=== PATIENT | male | born 1995 | race Caucasian/White ===

== ENCOUNTER 2016-06-21 19:39 | Emergency (ER) ==
[2016-06-21 22:26] LABS: MANUAL DIFF NEEDED? NO
[2016-06-21 22:34] LABS: BASO% 0.3 % (0.0-0.8); EOS# 0.19 X1000 (0.0-0.7); EOS% 2.6 % (0.0-10.0); HEMATOCRIT 39.3 % (42.0-52.0); HEMOGLOBIN 13.6 g/dL (14.0-18.0); IMM GRAN# 0.01 X1000 (0.0-0.04); IMM GRAN% 0.1 % (0.0-0.5); LYMPH# 2.15 X1000 (1.2-3.4); LYMPH% 29.9 % (20.5-51.1); MCH 29.2 PG (27-31); MCHC 34.6 g/dL (33-37); MCV 84.3 FL (81-99); MONO# 0.51 X1000 (0.11-0.59); MONO% 7.1 % (1.7-9.3); MPV 11.1 FL (7.4-10.4); PLT 221 X1000 (130-400); RBC 4.66 XMIL (4.7-6.1)
[2016-06-21 22:59] LABS: AGAP 10; ALBUMIN 4.3 g/dL (3.5-5.0); ALKALINE PHOSPHATASE 80 U/L (32-122); AMYLASE 34 U/L (20-200); BUN 9 mg/dL (8-22); CALCIUM 9.4 mg/dL (8.8-10.2); CHLORIDE 102 mmol/L (98-107); COSMO 271; GOT 22 U/L (10-34); GPT 24 U/L (10-44); LIPASE 29 U/L (13-60); POTASSIUM 3.7 mmol/L (3.5-5.1); SODIUM 136 mmol/L (136-145); TCO2 24 mmol/L (25-35); TOTAL PROTEIN 6.9 g/dL (6.3-8.3)
--- NOTE | 2016-06-21 23:06 | PROVIDER DOCUMENTATION ---
HPI-Abdominal Pain/GI Problem - General Chief Complaint: Vomiting Stated Complaint: VOMITING/WEAK/D Time Seen by Provider: 06/21/16 21:49 Source: patient Allergies/Adverse Reactions: Patient Allergies Allergy/AdvReac Type Severity Reaction Status Date / Time No Known Allergies Allergy Verified 02/16/16 10:31 - History of Present Illness-ABD Nature of Presenting Problems: 21 year old M presents to the ED with a cc of nausea, vomiting, and diarrhea with an onset of 1.5 weeks ago. PT states that he is vomiting up liquid that is very dark and think. Pt states that his diarrhea has been the consistency of mucous. Quality of Pain: reports: none Severity in ED: reports: mild Onset/Duration: reports: other (1.5 weeks) Associated Symptoms: reports: diarrhea, nausea, vomiting Bruising or Bleeding Gums?: No Similar Symptoms Previously?: No Recently seen or treated by another doctor?: No Review of Systems - Adult - REVIEW OF SYSTEMS - ADULT Constitutional: denies: chills, fever Eyes: reports: no symptoms reported Ears, Nose, Mouth & Throat: reports: no symptoms reported Cardiovascular: denies: chest pain, palpitations Respiratory: denies: cough, shortness of breath Gastrointestinal: reports: diarrhea, nausea, vomiting Genitourinary: denies: dysuria, hematuria Musculoskeletal: reports: no symptoms reported Integumentary: reports: no symptoms reported Neurological: reports: no symptoms reported Psychiatric: reports: no symptoms reported Endocrine: reports: no symptoms reported Hematologic/Lymphatic: reports: no symptoms reported Allergic/Immunologic: reports: no symptoms reported All Other Systems: Reviewed and Negative Past History - Adult - PAST MEDICAL HISTORY-ADULT Review of Records: reports: Nursing Assessment Review, Medications Reviewed Major Childhood Illnesses: reports: denies history Cardiovascular: reports: denies history Respiratory: reports: denies history Gastrointestinal: reports: denies history Obstetrical/Gynecological: reports: denies history Genitourinary: reports: denies history Musculoskeletal: reports: denies history Neurological: reports: denies history Psychiatric: reports: anxiety Endocrine/Immune: reports: denies history Other Conditions: reports: denies history - PRIOR SURGERIES/PROCEDURES Surgical/Procedure History: reports: other (L fifth digit ) - IMMUNIZATION STATUS Childhood Immunizations: See Nurse Assessment Flu Vaccine: See Nurse Assessment - FAMILY HISTORY Family History: reviewed, not pertinent - SOCIAL HISTORY Smoking: cigarettes, less than 1 pack/day Provider spent 3-5 mins advising pt. on dangers of tobacco.: Discussed manners to quit use, and f/u contacts for add'l counseling. Substance Use: marijuana Alcohol Use Frequency: never Physical Exam-General - PHYSICAL EXAM-ADULT Initial Vital Signs Reviewed: Yes - CONSTITUTIONAL General Appearance: appears well, alert, no apparent distress - RESPIRATORY Respiratory: chest non-tender, lungs clear, normal breath sounds - CARDIOVASCULAR Cardiovascular: normal peripheral pulses, regular rate, rhythm, no edema - GASTROINTESTINAL (ABDOMEN) Abdominal Exam: non tender, soft - MUSCULOSKELETAL Extremity: normal inspection - SKIN Integumentary: normal color, normal turgor, warm/dry - PSYCHIATRIC Psych/Mental Status: normal mood/affect, normal thought content, normal thought process, oriented x 3 Progress - PLAN OF CARE/RESULTS Progress/Plan/Lab Results: plan of care: imaging, labs Orders Category Date Time Status Saline Loc DIRECTED Care 06/21/16 21:57 Active NPO Diet 06/21/16 21:[address] ABD/PELVIS W/ IV CONT ONLY [CT] Stat Exams 06/21/16 23:20 Taken AMYLASE [CHEM] Stat Lab 06/21/16 22:15 Completed CBC WITH ELECTRONIC DIFF [HEME] Stat Lab 06/21/16 22:15 Completed COMPREHENSIVE METABOLIC PANEL [CHEM] Stat Lab 06/21/16 22:15 Completed LIPASE [CHEM] Stat Lab 06/21/16 22:15 Completed Laboratory Tests 06/21/16 06/21/16 22:15 22:15 WBC 7.20 RBC 4.66 L Hgb 13.6 L Hct 39.3 L MCV 84.3 MCH 29.2 MCHC 34.6 RDW Std Deviation 12.2 Plt Count 221 MPV 11.1 H Immature Gran % (Auto) 0.1 Neut % (Auto) 60.0 Lymph % (Auto) 29.9 [place] % (Auto) 7.1 Eos % (Auto) 2.6 Baso % (Auto) 0.3 Immature Gran # (Auto) 0.01 Neut # (Auto) 4.32 Lymph # (Auto) 2.15 [place] # (Auto) 0.51 Eos # (Auto) 0.19 Baso # (Auto) 0.02 Sodium 136 Potassium 3.7 Chloride 102 Carbon Dioxide 24 L Anion Gap 10 BUN 9 Creatinine 1.0 Estimated GFR/1.73 m2 > 60 BUN/Creatinine Ratio 9 Glucose 99 Calculated Osmolality 271 Calcium 9.4 Total Bilirubin 1.10 H AST 22 ALT 24 Alkaline Phosphatase 80 Total Protein 6.9 Albumin 4.3 Globulin 3.0 Albumin/Globulin Ratio 2.0 Amylase 34 Lipase 29 Vital Signs - 24 hr 06/21/16 19:49 Temperature 96.9 F L Pulse Rate 83 Respiratory 20 Rate Blood Pressure 170/106 O2 Sat by Pulse 99 Oximetry Pt given results and will be d/c home w/ rx to follow up with PCP. Pt verbally understood instructions. PT remained clinically stable throughout the course of the ED stay and will return if symptoms worsen. - CT/MRI 1 CT Study: Abdomen, Pelvis Impression: Normal (No diverticulitis or colonic wall thickening. Normal appendix. No bowel obstruction: Dr. Gamboa(real rad radiologist)) Attestation - Scribe Verification/Attestation Scribe:: Marina Patel Acting as Scribe for:: Kike Gambino Scribe documention review:: This chart was documented by a scribe and accurately reflects the service the provider performed and the decisions made by the provider. Physician Attestation - Physician Attestation I, the provider, attest to the following statement:: Kike Gambino Physician documentation Attestation:: This documentation recorded by the scribe accurately reflects the service I personally performed and the decisions made by me.
[2016-06-22 02:06] VITALS: BP 154/102
--- NOTE | 2016-06-22 07:54 | Diag Imaging Result Document ---
PROCEDURE NAME: CT ABD/PELVIS W/ IV CONT ONLY - 06/21/2016 CT OF THE ABDOMEN WITH INTRAVENOUS CONTRAST: COMPARISON: There are no previous studies. FINDINGS: There is atelectasis or fibrosis in the right middle lobe. The spleen is slightly enlarged measuring 14 cm in AP dimension. There may be some small stones in the gallbladder. There is no evidence of pericholecystic fluid. The gallbladder wall is normal in appearance. The liver is, otherwise, unremarkable. The adrenal glands are not enlarged. The kidneys are without evidence of hydronephrosis or mass. The pancreas is normal in appearance. There are some prominent mesenteric nodes. CT OF THE PELVIS WITH INTRAVENOUS CONTRAST: FINDINGS: The appendix is normal in appearance. There is no evidence of free pelvic fluid. The urinary bladder is unremarkable. The regional skeleton appears to be intact. IMPRESSION: The possibility of mild mesenteric adenitis cannot be excluded. Borderline splenomegaly. Questionable cholelithiasis.
== END 2016-06-22 02:05 | disposition home or self-care (01) ==
LOC: P.ED 19:39
DX: R11.2 Nausea with vomiting, unspecified (principal); R19.7 Diarrhea, unspecified; F17.210 Nicotine dependence, cigarettes, uncomplicated; Z71.6 Tobacco abuse counseling
CPT/HCPCS: 74177; 80053; 82150; 83690; 85025; Q9967